=== PATIENT | male | born 1980 | race Caucasian/White ===

== ENCOUNTER 2023-08-08 08:27 | Outpatient (OUT) | payer OTHER, SELFPAY ==
[2023-08-08 08:54] LABS: Basophils Absolute Auto 0.1 10^3/uL (0.0-0.1); Basophils Percent Auto 0.5 % (0.2-2.0); Eosinophils Absolute Auto 0.2 10^3/uL (0.0-0.7); Eosinophils Percent Auto 1.9 % (0.9-7.0); Hematocrit 44.2 % (42.0-54.0); Hemoglobin 15.1 g/dL (14.0-18.0); Immature Granulocytes Abs Auto 0.03 10^3/uL (0.00-0.03); Immature Granulocytes Pct Auto 0.3 % (0.0-0.5); Lymphocytes Absolute Auto 1.8 10^3/uL (1.2-3.8); Lymphocytes Percent Auto 18.5 % (20.5-60.0); Mean Corpuscular HGB Conc 34.2 g/dL (29.9-35.2); Mean Corpuscular Hemoglobin 27.6 pg (25.9-34.0); Mean Corpuscular Volume 80.8 fL (80.0-94.0); Mean Platelet Volume 9.3 fL (9.5-13.5); Monocytes Absolute Auto 0.9 10^3/uL (0.3-0.8); Monocytes Percent Auto 8.6 % (1.7-12.0); Neutrophils Percent Auto 70.2 % (43.0-75.0); Platelet Count 408 10^3/uL (150-450); Red Blood Count 5.47 10^6/uL (4.70-6.10); Red Cell Distribution Width 12.3 % (11.0-15.0)
[2023-08-08 09:42] LABS: Estimated Average Glucose 263 mg/dL; Glycohemoglobin A1C 10.8 % (4.5-6.2)
[2023-08-08 10:31] LABS: Alanine Aminotransferase 23 U/L (16-63); Albumin Globulin Ratio 0.7; Albumin Level 3.2 g/dL (3.4-5.0); Alkaline Phosphatase 113 U/L (46-116); Aspartate Amino Transferase 11 U/L (15-37); BUN Creatinine Ratio 4.9; Bilirubin Total 0.6 mg/dL (0.2-1.0); Carbon Dioxide 29.8 mmol/L (21.0-32.0); Chloride 98 mmol/L (98-107); Chol HDL Ratio 4.8; Cholesterol 178 mg/dL (<=200); Estimated GFR (African America >60 (>=60); Estimated GFR (Non-African Ame >60 (>=60); Free T3 2.43 pg/mL (2.18-3.98); Globulin 4.5 g/dL; Glucose 309 mg/dL (74-106); HDL Cholesterol 37 mg/dL (40-60); Potassium 3.8 mmol/L (3.5-5.1); Sodium 136 mmol/L (136-145); Total Protein 7.7 g/dL (6.4-8.2); Triglycerides 205 mg/dL (<=150)
[2023-08-08 10:44] LABS: Prostate Specific Antigen Scrn 3.86 ng/mL (<=4.00)
[2023-08-09 04:07] LABS: Testosterone 351 ng/dL (264-916)
[2023-08-09 10:09] LABS: Insulin 6.5 uIU/mL (2.6-24.9)
== END 2023-08-08 08:28 | disposition home or self-care (01) ==
PROVIDERS: PCP Family Medicine; Visit Provider Family Medicine
DX: Z00.00 Encounter for general adult medical examination without abnormal findings (principal); E78.5 Hyperlipidemia, unspecified; Z12.5 Encounter for screening for malignant neoplasm of prostate; R73.9 Hyperglycemia, unspecified
CPT/HCPCS: 36415; 80053; 80061; 83036; 83525; 84403; 84436; 84443; 84481; 85025; G0103

== ENCOUNTER 2023-11-13 07:35 | Emergency (ER) | payer OTHER, SELFPAY ==
[2023-11-13 07:39] VITALS: BP 118/92; PULSE 71; TEMP 36.6; O2SAT 99; BMI 25.1
--- NOTE | 2023-11-13 07:55 | CT_ITS ---
The [address] [address] Patient Name: RODRIGO FAGAN MRN: [id number] date: 1980 Sex: M Assigned Patient Location: ED.MAIN Current Patient Location: Accession/Order Number: [id number] Exam Date: 11/13/2023 08:20 Report Date: 11/13/2023 08:58 At the request of: MARCUS ROBERT Procedure: CT lumbar spine wo con PROCEDURE: CT lumbar spine wo con COMPARISON: None. HISTORY: back pain with bilateral leg weakness TECHNIQUE: Axial, Coronal, and Sagittal CT images obtained without IV contrast. Dose reduction techniques were achieved by using automated exposure control and/or adjustment of mA and/or kV according to patient size and/or use of iterative reconstruction technique. FINDINGS: PARASPINAL AREA: Normal with no visible mass. DISCS: No significant disc/facet abnormality, spinal stenosis, or foraminal stenosis. BONES: Normal alignment with no acute fracture or spondylolisthesis. No significant degenerative changes OTHER: Minimal atherosclerosis CT/CT lumbar spine wo con IMPRESSION: No acute abnormality Electronically authenticated by: PEYMAN GRANADO Date: 11/13/2023 08:58
--- NOTE | 2023-11-13 08:05 | ED.GENADUL1 ---
HPI HPI - General Adult General Chief complaint: Neuro Symptoms/Deficit Stated complaint: LOWER EXTREMITY PAIN AND WEAKNESS Time Seen by Provider: 11/13/23 07:43 Source: patient Mode of arrival: Wheelchair Limitations: no limitations History of Present Illness HPI narrative: The patient is coming to the ER with 1 day history of weakness and feeling unsteady on his feet with numbness and tingling in his feet that is more than his baseline, the patient mentioned that he already had a some tingling in his feet but it does not seem that he follow-up with his primary care regularly, and according to his he was may be diagnosed with diabetes and he is not taking any medic patient, she mentioned that he have elevated blood sugar history The patient denies any fall although he did mention that when he stood up and his feet from the bed when he woke up today he found that he had his bilateral leg gave up, the patient does have a history of chronic back pain There was no head injury at any time no loss of consciousness there was no headache The patient had no change in bowel movement or any change in appetite there was no fever , chills cough or any abdominal pain or any chest pain record, Related Data Previous Rx's ?Medication ?Instructions ?Recorded metformin 500 mg tablet 500 mg PO DAILY #30 tabs 11/13/23 Allergies Allergy/AdvReac Type Severity Reaction Status Date / Time No Known Drug Allergies Allergy Verified 11/13/23 07:39 Opioid HPI Opioid Management Most Recent Opioid Data: No Data to Display Review of Systems ROS Status of ROS 10 or more systems reviewed and unremarkable except as noted in history and below Exam Narrative Exam Narrative: Nurses notes and vital signs reviewed and patient is not hypoxic. General: Well-appearing and in no apparent distress. Skin: Warm, dry, no pallor noted. No rash. Head: Normocephalic, atraumatic. Neck: Supple, non-tender. Eye: Pupils are equal, round and EOMI. No scleral icterus. Ears, Nose, Mouth, and Throat: TM are clear, no nasal mucosal hypertrophy. Oral mucosa is moist, no posterior oropharynx erythema, uvula is mid-line Cardiovascular: Regular Rate and Rhythm without murmur, gallop or rub. Respiratory: No accessory muscle use or respiratory distress. Lungs are clear to auscultation, no wheezing, rales or rhonchi Chest Wall: no tenderness Back: No midline thoracic or lumbar vertebral tenderness. No CVA tenderness Musculoskeletal: normal ROM, no calf or popliteal tenderness, no lower extremity edema/swelling GI: Abdomen is soft, non-distended. Normal bowel sounds. No masses appreciated. No tenderness to palpation. No rebound, guarding, or rigidity noted. Neurological: A&O x4. No cranial nerve dysfunction observed. No truncal ataxia. Moves all extremities. The patient have a stocking like sensation that stops at the mid tibia bilaterally with decreased sensation to pain, he did had the dizziness when standing up and unsteadiness, Psychiatric: Cooperative and interactive. Normal mood and affect. Constitutional Vital Signs, click to edit/add: Last Vital Signs Temp 97.9 F 11/13/23 07:39 Pulse 71 11/13/23 07:39 Resp 18 11/13/23 07:39 BP 118/92 H 11/13/23 07:39 Pulse Ox 99 11/13/23 07:39 O2 Del Method Room Air 11/13/23 07:39 Course Vital Signs Vital signs: Vital Signs Temperature 97.9 F 11/13/23 07:39 Pulse Rate 71 11/13/23 07:39 Respiratory Rate 18 11/13/23 07:39 Blood Pressure 118/92 H 11/13/23 07:39 Pulse Oximetry 99 11/13/23 07:39 Oxygen Delivery Method Room Air 11/13/23 07:39 Temperature 97.9 F 11/13/23 07:39 Pulse Rate 71 11/13/23 07:39 Respiratory Rate 18 11/13/23 07:39 Blood Pressure 118/92 H 11/13/23 07:39 Pulse Oximetry 99 11/13/23 07:39 Oxygen Delivery Method Room Air 11/13/23 07:39 Medical Decision Making MDM Narrative Medical decision making narrative: The patient presented to us mostly with the peripheral neuropathy Reviewing the patient workup from July he is definitely diabetic with A1c above 10 but he is not taking any medication for it his blood sugar around 300 right now He does not have any signs of DKA there was no polyuria or polydipsia and his blood workup shows no acidosis Patient was started on IV fluids after which she was feeling much better The plan was to discharge home with metformin 500 mg daily to be started but he will was instructed about the importance of follow-up with his primary care within a week that he need to further discuss further options to treat his diabetes Patient multiple times have been advised about diabetes management The patient is to follow up with primary care physician in next 2-3 days or to return to the emergency department should any of the signs or symptoms worsen or new symptoms develop. The patient agrees with the following Diagnosis and Treatment plan and the patient will be discharged home. Lab Data Labs: Lab Results 11/13/23 11/13/23 Range/Units 08:03 08:08 WBC 5.3 (4.0-11.0) 10^3/uL RBC 5.53 (4.70-6.10) 10^6/uL Hgb 15.4 (14.0-18.0) g/dL Hct 44.3 (42.0-54.0) % MCV 80.1 (80.0-94.0) fL MCH 27.8 (25.9-34.0) pg MCHC 34.8 (29.9-35.2) g/dL RDW 12.6 (11.0-15.0) % Plt Count 266 (150-450) 10^3/uL MPV 9.4 L (9.5-13.5) fL Neut % (Auto) 55.5 (43.0-75.0) % Lymph % (Auto) 28.7 (20.5-60.0) % [place] % (Auto) 11.3 (1.7-12.0) % Eos % (Auto) 3.4 (0.9-7.0) % Baso % (Auto) 0.9 (0.2-2.0) % Neut # (Auto) 2.9 (1.4-6.5) 10^3/uL Lymph # (Auto) 1.5 (1.2-3.8) 10^3/uL [place] # (Auto) 0.6 (0.3-0.8) 10^3/uL Eos # (Auto) 0.2 (0.0-0.7) 10^3/uL Baso # (Auto) 0.1 (0.0-0.1) 10^3/uL Abs Immat Gran (auto) 0.01 (0.00-0.03) 10^3/uL Imm/Tot Granulo (auto) 0.2 (0.0-0.5) % Sodium 137 (136-145) mmol/L Potassium 4.0 (3.5-5.1) mmol/L Chloride 102 (98-107) mmol/L Carbon Dioxide 30.1 (21.0-32.0) mmol/L Anion Gap 8.9 BUN 6.0 L (7.0-18.0) mg/dL Creatinine 0.75 (0.70-1.30) mg/dL Est GFR ( Amer) >60 (>=60) Est GFR (Non-Af Amer) >60 (>=60) BUN/Creatinine Ratio 8.0 Glucose 283 H (74-106) mg/dL Calcium 8.3 L (8.5-10.1) mg/dL Magnesium 1.9 (1.8-2.4) mg/dL Total Bilirubin 0.6 (0.2-1.0) mg/dL AST 16 (15-37) U/L ALT 25 (16-63) U/L Alkaline Phosphatase 80 (46-116) U/L Total Protein 6.9 (6.4-8.2) g/dL Albumin 3.4 (3.4-5.0) g/dL Globulin 3.5 g/dL Albumin/Globulin Ratio 1.0 Urine Color Yellow (YELLOW) Urine Clarity Clear (CLEAR) Urine pH 6.0 (5.0-9.0) Ur Specific [place] 1.020 (1.005-1.025) Urine Protein Negative (NEG/TRACE) mg/dL Urine Glucose (UA) >=1000 A (NEGATIVE) mg/dL Urine Ketones Trace A (NEGATIVE) mg/dL Urine Occult Blood Negative (NEGATIVE) Urine Nitrite Negative (NEGATIVE) Urine Bilirubin Negative (NEGATIVE) Urine Urobilinogen 1.0 (0.2-1.0) EU/dL Ur Leukocyte Esterase Negative (NEGATIVE) Discharge Plan Discharge Stand Alone Forms: Portal Instructions Chief Complaint: Neuro Symptoms/Deficit Clinical Impression: Peripheral neuropathy Qualifiers: Peripheral neuropathy type: polyneuropathy, unspecified Qualified Code(s): G62.9 - Polyneuropathy, unspecified Patient Disposition: Home, Self-Care Time of Disposition Decision: 09:37 Condition: Good Prescriptions / Home Meds: New metformin 500 mg tablet 500 mg PO DAILY Qty: 30 0RF Print Language: [place] Instructions: Peripheral Neuropathy (ED), Diabetic Hyperglycemia (ED), Diabetes and Nutrition (ED) Referrals: Aurelio Babb MD [Primary Care Provider] - 1 week
[2023-11-13] MEDS: 0.9 % SODIUM CHLORIDE 1,000 ML 1000 ML IV (08:10)
[2023-11-13 08:14] LABS: Basophils Absolute Auto 0.1 10^3/uL (0.0-0.1); Basophils Percent Auto 0.9 % (0.2-2.0); Eosinophils Absolute Auto 0.2 10^3/uL (0.0-0.7); Eosinophils Percent Auto 3.4 % (0.9-7.0); Hematocrit 44.3 % (42.0-54.0); Hemoglobin 15.4 g/dL (14.0-18.0); Immature Granulocytes Abs Auto 0.01 10^3/uL (0.00-0.03); Immature Granulocytes Pct Auto 0.2 % (0.0-0.5); Lymphocytes Absolute Auto 1.5 10^3/uL (1.2-3.8); Lymphocytes Percent Auto 28.7 % (20.5-60.0); Mean Corpuscular HGB Conc 34.8 g/dL (29.9-35.2); Mean Corpuscular Hemoglobin 27.8 pg (25.9-34.0); Mean Corpuscular Volume 80.1 fL (80.0-94.0); Mean Platelet Volume 9.4 fL (9.5-13.5); Monocytes Absolute Auto 0.6 10^3/uL (0.3-0.8); Monocytes Percent Auto 11.3 % (1.7-12.0); Neutrophils Absolute Auto 2.9 10^3/uL (1.4-6.5); Neutrophils Percent Auto 55.5 % (43.0-75.0); Platelet Count 266 10^3/uL (150-450); Red Blood Count 5.53 10^6/uL (4.70-6.10); Red Cell Distribution Width 12.6 % (11.0-15.0); White Blood Count 5.3 10^3/uL (4.0-11.0)
[2023-11-13 08:26] LABS: Bilirubin Urine NEGATIVE (NEGATIVE); Blood Urine NEGATIVE (NEGATIVE); Clarity Urine CLEAR (CLEAR); Color Urine YELLOW (YELLOW); Glucose Urine UA >=1000 mg/dL (NEGATIVE); Ketones Urine TRACE mg/dL (NEGATIVE); Leukocyte Esterase Urine NEGATIVE (NEGATIVE); Nitrite Urine NEGATIVE (NEGATIVE); Protein Urine NEGATIVE (NEG/TRACE)
[2023-11-13 08:27] LABS: Urine Microscopic Indicated NO
[2023-11-13 08:31] LABS: Alanine Aminotransferase 25 U/L (16-63); Albumin Level 3.4 g/dL (3.4-5.0); Alkaline Phosphatase 80 U/L (46-116); Anion Gap 8.9; Aspartate Amino Transferase 16 U/L (15-37); Bilirubin Total 0.6 mg/dL (0.2-1.0); Calcium 8.3 mg/dL (8.5-10.1); Carbon Dioxide 30.1 mmol/L (21.0-32.0); Chloride 102 mmol/L (98-107); Estimated GFR (African America >60 (>=60); Estimated GFR (Non-African Ame >60 (>=60); Globulin 3.5 g/dL; Glucose 283 mg/dL (74-106); Sodium 137 mmol/L (136-145); Total Protein 6.9 g/dL (6.4-8.2)
[2023-11-13 08:35] LABS: Magnesium 1.9 mg/dL (1.8-2.4)
[2023-11-13 09:52] VITALS: BP 125/75; PULSE 76; O2SAT 98
[2023-11-13 09:53] VITALS: O2SAT 97
[2023-11-13 10:09] VITALS: BP 118/88; PULSE 85; O2SAT 99
== END 2023-11-13 10:10 | disposition home or self-care (01) ==
PROVIDERS: Emergency Provider Emergency Medicine; PCP Family Medicine
DX: E11.42 Type 2 diabetes mellitus with diabetic polyneuropathy (principal); Z79.84 Long term (current) use of oral hypoglycemic drugs
CPT/HCPCS: 36415; 72131; 80053; 81003; 83735; 85025; 99284

== ENCOUNTER 2024-03-11 04:15 | Emergency (ER) | payer OTHER, SELFPAY ==
[2024-03-11 04:18] VITALS: BP 143/108; PULSE 86; TEMP 36.6; O2SAT 99; BMI 28.1
--- OUTSIDE RECORDS SUMMARY | 2024-03-11 04:32 | XMS_ITS | CCD ---
Author Organization [facility] Care Team Providers Care Landscape Gardener Name Role Phone HOY, EMMANUELLE Consulting Unavailable HOY, EMMANUELLE Attending Unavailable HOY, EMMANUELLE Admitting Unavailable HOY, EMMANUELLE Primary Care Unavailable HOY, EMMANUELLE Attending Unavailable HOY, EMMANUELLE Admitting Unavailable HOY, EMMANUELLE Consulting Unavailable Problems Active Problems Problem Classification Problem Date Documented Da te Episodic/Chronic Unclassified (4 sources) COVID-19; Translations: [COVID-19] Onset: 03-28-2020 Past or Other Problems Problem Classification Problem Date Documented Da te Episodic/Chronic Diabetes mellitus without complication (1 source) Other abnormal glucose; Translations: [OTHER ABNORMAL GLUCOSE] Onset: 12-11-2019 Episodic Other nutritional; endocrine; and metabolic disorders (4 sources) Polydipsia; Translations: [POLYDIPSIA] Onset: 12-04-2019 Episodic Other nutritional; endocrine; and metabolic disorders (1 source) Abnormal weight loss; Translations: [ABNORMAL WEIGHT LOSS] Onset: 12-11-2019 Episodic Results Test Name Value Interpretation Reference Range Facil ity Covid-19 PCR (CVDTBH)on Covid-19 DETECTED Abnormal NOT DETECTED [facility] Comment on above: Result Comment: This test is not yet approved or cleared by the [place] FDA. When there are no FDA-approved or cleared tests available, and other criteria are met, FDA can make tests available under an emergency access mechanism called an Emergency Use Authorization (EUA). The EUA for this test is supported by the [place] of Health and Human Service's (HHS's) declaration that circumstances exist to justify the emergency use of in vitro diagnostics for the detection and/or diagnosis of the virus that causes COVID-19. This EUA will remain in effect (meaning this test can be used) for the duration of the COVID-19 declaration justifying emergency of IVDs, unless it is terminated or revoked by FDA (after which the test may no longer be used). Performed By: #### I NSULIN #### [facility] [address] [place] [address] Maria D Hernandez EUA Statement SEE BELOW Normal [facility] Comment on above: Result Comment: This test is not yet approved or cleared by the [place] FDA. When there are no FDA-approved or cleared tests available, and other criteria are met, FDA can make tests available under an emergency access mechanism called an Emergency Use Authorization (EUA). The EUA for this test is supported by the [place] of Health and Human Service?s (HHS?s) declaration that circumstances exist to justify the emergency use of in vitro diagnostics for the detection and/or diagnosis of the virus that causes COVID-19. This EUA will remain in effect (meaning this test can be used) for the duration of the COVID-19 declaration justifying emergency of IVDs, unless it is terminated or revoked by FDA (after which the test may no longer be used). When diagnostic testing is negative, the possibility of a false negative should be considered in the context of a patients recent exposures and the presence of clinical signs and symptoms consistent with SARS-CoV-2. Performed By: #### I NSULIN #### [facility] [address] [place] [address] Maria D Hernandez INSULINon 12-05-2019 Insulin 8.7 uIU/mL Normal 2.6-24.9 [facility] Comment on above: Performed By: #### I NSULIN #### [facility] [address] [place] [address] Maria D Hernandez CBC AUTO DIFFon 12-04-2019 Basophils (Bld) [#/Vol] 0.1 103/ul Normal 0.0-0.1 [facility] Comment on above: Performed By: #### C BC #### [facility] [address] [place] [address] Maria D Hernandez Basophils/100 WBC (Bld) 0.8 % Normal 0.2-2.0 [facility] Comment on above: Performed By: #### C BC #### [facility] [address] [place] [address] Maria D Mary Eosinophils (Bld) [#/Vol] 0.4 103/ul Normal 0.0-0.7 [facility] Comment on above: Performed By: #### C BC #### [facility] [address] [place] [address] Maria D Mary Eosinophils/100 WBC (Bld) 5.6 % Normal 0.9-7.0 [facility] Comment on above: Performed By: #### C BC #### [facility] [address] [place] [address] Maria D Mary Erythrocyte distribution width (RBC) [Ratio] 12.5 % Normal 11.0-15.0 [facility] Comment on above: Performed By: #### C BC #### [facility] [address] [place] [address] Maria D Mary Hematocrit (Bld) [Volume fraction] 44.8 % Normal 42.0-54.0 [facility] Comment on above: Performed By: #### C BC #### [facility] [address] [place] [address] Maria D Mary Hemoglobin (Bld) [Mass/Vol] 15.4 g/dL Normal 14.0-18.0 [facility] Comment on above: Performed By: #### C BC #### [facility] [address] [place] [address] Maria D Mary IG # 0.02 10e3/ul Normal 0.00-0.03 [facility] Comment on above: Performed By: #### C BC #### [facility] [address] [place] [address] Maria D Mary IG % 0.3 % Normal 0.0-0.5 [facility] Comment on above: Performed By: #### C BC #### [facility] [address] [place], [place] [id number] Maria D Mary Lymphocytes (Bld) [#/Vol] 1.0 103/ul Critically low 1.2-3.8 [facility] Comment on above: Performed By: #### C BC #### [facility] [address] [place] [address] Maria Dhillary Hernandez Lymphocytes/100 WBC (Bld) 14.9 % Critically low 20.5-60.0 [facility] Comment on above: Performed By: #### C BC #### [facility] [address] [place] [address] Maria D Hernandez MANUAL DIFF REQ NO Normal [facility] Comment on above: Performed By: #### C BC #### [facility] [address] [place], [place] [id number] Maria Dhillary Hernandez MCH (RBC) [Entitic mass] 27.7 pg Normal 25.9-34.0 [facility] Comment on above: Performed By: #### C BC #### [facility] [address] [place] [address] Maria Dhillary Hernandez MCHC (RBC) [Mass/Vol] 34.4 g/dL Normal 29.9-35.2 [facility] Comment on above: Performed By: #### C BC #### [facility] [address] [place] [address] Maria Dhillary Hernandez MCV (RBC) [Entitic vol] 80.7 fL Normal 80.0-94.0 [facility] Comment on above: Performed By: #### C BC #### [facility] [address] [place] [address] Maria D Mary Monocytes (Bld) [#/Vol] 0.5 103/ul Normal 0.3-0.8 [facility] Comment on above: Performed By: #### C BC #### [facility] [address] [place] [address] Maria Dhillary Kwonen Monocytes/100 WBC (Bld) 7.8 % Normal 1.7-12.0 [facility] Comment on above: Performed By: #### C BC #### [facility] [address] [place], [place] [id number] Maria D Mary Neutrophils (Bld) [#/Vol] 4.5 103/ul Normal 1.4-6.5 [facility] Comment on above: Performed By: #### C BC #### [facility] [address] [place] [address] Maria D Mary Neutrophils/100 WBC (Bld) 70.6 % Normal 43.0-75.0 [facility] Comment on above: Performed By: #### C BC #### [facility] [address] [place], [place] [address] Maria D Mary Platelet mean volume (Bld) [Entitic vol] 10.0 fL Normal 9.5-13.5 [facility] Comment on above: Performed By: #### C BC #### [facility] [address] [place], [place] [address] Maria D Mary Platelets (Bld) [#/Vol] 336 103/ul Normal 150-450 [facility] Comment on above: Performed By: #### C BC #### [facility] [address] [place], [place] [phone] Maria D Mary RBC (Bld) [#/Vol] 5.55 106/ul Normal 4.70-6.10 [facility] Comment on above: Performed By: #### C BC #### [facility] [address] [place], [place] [phone] Maria D Mary WBC (Bld) [#/Vol] 6.4 103/ul Normal 4.0-11.[address] [facility] Comment on above: Performed By: #### C BC #### [facility] [address] [place] [address] Maria D Mary CULTURE URINEon 12-04-2019 CULTURE URINE Culture Observations: No growth. Normal [facility] Comment on above: Performed By: #### U RCX #### [facility] [address] [place] [address] Maria D Mary DIRECT LDLon 12-04-2019 Cholesterol in LDL [Mass/Vol] SEE BELOW Normal [facility] Comment on above: Result Comment: <100 mg/dl OPTIMAL 100 - 129 mg/dl NEAR OR ABOVE OPTIMAL 130 - 159 mg/dl BORDERLINE HIGH 160 - 189 mg/dl HIGH >190 mg/dl VERY HIGH Performed By: #### T 7, TSH, CMP, DLDL, LIPID #### [facility] [address] [place], [place] [phone] Maria D Mary Cholesterol in LDL [Mass/Vol] 116 mg/dL Normal [facility] Comment on above: Performed By: #### T 7, TSH, CMP, DLDL, LIPID #### [facility] [address] [place] [id number] Maria D Hernandez FREE THYROXINE INDEX T7on FTI 3.01 Normal [facility] Comment on above: Performed By: #### T 7, TSH, CMP, DLDL, LIPID #### [facility] [address] [place] [id number] Maria D Hernandez T3U 35.0 % Normal 23.5-40.5 [facility] Comment on above: Performed By: #### T 7, TSH, CMP, DLDL, LIPID #### [facility] [address] [place] [id number] Maria D Hernandez T4 [Mass/Vol] 8.60 ug/dL Normal 5.53-11.00 [facility] Comment on above: Performed By: #### T 7, TSH, CMP, DLDL, LIPID #### [facility] [address] [place], [place] [address] Maria D Hernandez GLYCOHEMOGLOBIN A1Con 2019 Glucose [Mass/Vol] 341 mg/dL Normal The [facility] Comment on above: Performed By: #### A 1C #### [facility] [address] [place], [place] [address] Maria D Hernandez HbA1c (Bld) [Mass fraction] 13.5 % Critically high <=6.0 [facility] Comment on above: Performed By: #### A 1C #### [facility] [address] [place] [id number] Maria D Hernandez LIPID PROFILEon 12-04-2019 CHOL-HDL RATIO NORM SEE BELOW Normal [facility] Comment on above: Result Comment: 3.3 - 4.4 LOW RISK 4.4 - 7.1 AVERAGE RISK 7.1 - 11.0 MODERATE RISK >11.0 HIGH RISK Performed By: #### T 7, TSH, CMP, DLDL, LIPID #### [facility] [address] [id number] Maria D Mary Cholesterol [Mass/Vol] 217 mg/dL Critically high <=200 [facility] Comment on above: Performed By: #### T 7, TSH, CMP, DLDL, LIPID #### [facility] [address] [phone] Maria D Mary Cholesterol in HDL [Mass/Vol] 30 mg/dL Normal [facility] Comment on above: Performed By: #### T 7, TSH, CMP, DLDL, LIPID #### [facility] [address] [phone] Maria D Mary Cholesterol in HDL [Mass/Vol] > or = 60 mg/dl - LOW CARDIOVASCULAR RISK <40 mg/dl - HIGH CARDIOVASCULAR RISK Normal [facility] Comment on above: Performed By: #### T 7, TSH, CMP, DLDL, LIPID #### [facility] [address] [id number] Maria D Mary Cholesterol.total/Cho lesterol in HDL [Mass ratio] 7.2 {ratio} Normal [facility] Comment on above: Performed By: #### T 7, TSH, CMP, DLDL, LIPID #### [facility] [address] [id number] Maria D Mary Triglyceride [Mass/Vol] mg/dL Critically high <=150 [facility] Comment on above: Performed By: #### T 7, TSH, CMP, DLDL, LIPID #### [facility] [address] [place] [phone] Maria Dhillary Hernandez PROF 14(COMP METB)on 020 Albumin [Mass/Vol] 3.8 g/dL Normal 3.5-5.0 [facility] Comment on above: Performed By: #### T 7, TSH, CMP, DLDL, LIPID #### [facility] [address] [id number] Maria D Mary Albumin/Globulin [Mass ratio] 0.9 {ratio} Normal [facility] Comment on above: Performed By: #### T 7, TSH, CMP, DLDL, LIPID #### [facility] [address] [place] [phone] Maria D Mary ALP [Catalytic activity/Vol] 83 U/L Normal 38-126 [facility] Comment on above: Performed By: #### T 7, TSH, CMP, DLDL, LIPID #### [facility] [address] [place] [address] Maria D Mary ALT [Catalytic activity/Vol] 42 U/L Normal 21-72 [facility] Comment on above: Performed By: #### T 7, TSH, CMP, DLDL, LIPID #### [facility] [address] [place] [address] Maria D Mary Anion gap [Moles/Vol] 13.5 mmol/L Normal [facility] [place] [facility] Comment on above: Performed By: #### T 7, TSH, CMP, DLDL, LIPID #### [facility] [address] [place] [address] Maria D Mary AST [Catalytic activity/Vol] 20 U/L Normal 17-59 [facility] Comment on above: Performed By: #### T 7, TSH, CMP, DLDL, LIPID #### [facility] [address] [place] [address] Maria D Mary Bilirubin Ql (U) 0.8 mg/dL Normal 0.2-1.3 The [facility] Comment on above: Performed By: #### T 7, TSH, CMP, DLDL, LIPID #### [facility] [address] [place] [address] Maria D Mary Calcium [Mass/Vol] 8.9 mg/dL Normal 8.4-10.2 The [facility] Comment on above: Performed By: #### T 7, TSH, CMP, DLDL, LIPID #### [facility] [address] [place] [address] Maria D Mary Chloride [Moles/Vol] 97 mmol/L Critically low 98-107 [facility] Comment on above: Performed By: #### T 7, TSH, CMP, DLDL, LIPID #### [facility] [address] [place] [address] Maria D Mary CO2 [Moles/Vol] 28.0 mmol/L Normal 22.0-30.0 [facility] Comment on above: Performed By: #### T 7, TSH, CMP, DLDL, LIPID #### [facility] [address] [place] [address] Maria D Mary Creatinine [Mass/Vol] 0.95 mg/dL Normal 0.66-1.25 [facility] Comment on above: Performed By: #### T 7, TSH, CMP, DLDL, LIPID #### [facility] [address] [place] [address] Maria D Mary EGFR-AF TURKISH >60 Normal >=[address] [facility] Comment on above: Performed By: #### T 7, TSH, CMP, DLDL, LIPID #### [facility] [address] [place] [address] Maria D Mary EGFR-NON AF TURKISH >60 Normal >=60 [facility] Comment on above: Performed By: #### T 7, TSH, CMP, DLDL, LIPID #### [facility] [address] [place] [address] Maria D Mary Globulin (S) [Mass/Vol] 4.1 g/dL Normal [facility] Comment on above: Performed By: #### T 7, TSH, CMP, DLDL, LIPID #### [facility] [address] [place] [address] Maria D Mary Glucose [Mass/Vol] 407 mg/dL Critically high 74-106 [facility] Comment on above: Performed By: #### T 7, TSH, CMP, DLDL, LIPID #### [facility] [address] [place] [address] Maria D Mary Potassium [Moles/Vol] 3.5 mmol/L Normal 3.4-5.0 [facility] Comment on above: Performed By: #### T 7, TSH, CMP, DLDL, LIPID #### [facility] [address] [place] [address] Mariad Mary Protein [Mass/Vol] 7.9 g/dL Normal 6.1-8.2 [facility] Comment on above: Performed By: #### T 7, TSH, CMP, DLDL, LIPID #### [facility] [address] [place] [address] Maria D Mary Sodium [Moles/Vol] 135 mmol/L Critically low 137-145 [facility] [place] [facility] Comment on above: Performed By: #### T 7, TSH, CMP, DLDL, LIPID #### [facility] [address] [place] [address] Maria D Mary Urea nitrogen [Mass/Vol] 4.0 mg/dL Critically low 9.0-20.0 [facility] Comment on above: Performed By: #### T 7, TSH, CMP, DLDL, LIPID #### [facility] [address] [place] [address] Maria D Mary Urea nitrogen/Creatinine [Mass ratio] 4.2 mg/mg Normal [facility] Comment on above: Performed By: #### T 7, TSH, CMP, DLDL, LIPID #### [facility] [address] [place] [address] Maria D Mary TSHon 12-04-2019 TSH Qn SEE BELOW Normal [facility] Comment on above: Result Comment: <0.3 4 UIU/ml HYPERTHYROID 0.34-5.60 UIU/ml EUTHYROID >5.60 UIU/ml HYPOTHYROID Performed By: #### T 7, TSH, CMP, DLDL, LIPID #### [facility] [address] [place] [address] Maria D Mary TSH Qn 2.667 uIU/mL Normal 0.470-4.680 [facility] Comment on above: Performed By: #### T 7, TSH, CMP, DLDL, LIPID #### [facility] [address] [place] [address] Maria D Mary UA RANDOMon 12-04-2019 Bilirubin [Mass/Vol] Negative Normal NEGATIVE [facility] Comment on above: Performed By: #### U A #### [facility] [address] [place] [address] Maria D Mary BLOOD Negative Normal NEGATIVE [facility] Comment on above: Performed By: #### U A #### [facility] [address] [place] [address] Maria D Mary Clarity (U) CLEAR Normal [facility] Comment on above: Performed By: #### U A #### [facility] [address] [place] [address] Maria D Mary Color (U) LT. YELLOW Normal YELLOW [facility] Comment on above: Performed By: #### U A #### [facility] [address] [place] [address] Maria D Mary Glucose [Mass/Vol] >1000 Normal NEGATIVE [facility] Comment on above: Performed By: #### U A #### [facility] [address] [place] [address] Maria D Mary Ketones Ql (U) 40 mg/dl Normal NEGATIVE The [facility] Comment on above: Performed By: #### U A #### [facility] [address] [place] [address] Maria D Mary Nitrite Ql (U) Negative Normal NEGATIVE [facility] Comment on above: Performed By: #### U A #### [facility] [address] [place] [address] Maria D Mary pH (Bld) 6.0 Normal 5-9 [facility] Comment on above: Performed By: #### U A #### [facility] [address] [place] [address] Maria D Mary Protein [Mass/Vol] Negative Normal [facility] Comment on above: Performed By: #### U A #### [facility] [address] [place] [address] Maria D Mary SPEC GRAVITY 1.010 Normal 1.005-<=1.025 [facility] Comment on above: Performed By: #### U A #### [facility] [address] [place] [address] Maria D Mary Urobilinogen Qn (U) 0.2 EU/dl Normal [facility] Comment on above: Performed By: #### U A #### [facility] [address] [place] [address] Maria D Mary WBC (Bld) [#/Vol] Negative Normal NEGATIVE [facility] Comment on above: Performed By: #### U A #### [facility] [address] [place], [place] [address] Maria D Hernandez Encounters Encounter Date Encounter Type Care Provider Facility Start: 03-28-2020 End: 03-29-2020 Patient encounter procedure EMMANUELLE SANDERS Facility:[facility] Start: 12-04-2019 End: 12-05-2019 Patient encounter procedure EMMANUELLE SANDERS Facility:[facility] Payers Date Payer Category Payer Unknown [id number] 1980 Unknown [id number] 1961 Private Health Insurance [id number] Summary Purpose Family History No Family History Records Found Advance Directives No Advanced Directives Records Found Additional Source Comments (unrecognized sect ion and content) No Status Records Found INFORMATION SOURCE (unrecogn ized section and content) DATE CREATED AUTHOR 04/12/2020 [facility] FOR RECORDS PERTAINING TO PATIENTS WHO ARE OR HAVE BEEN ENROLLED IN A CHEMICAL DEPENDENCY/SUBSTANCEABUSE PROGRAM, SOME INFORMATION MAY BE OMITTED. This clinical summary was aggregated from multiple sources. Caution should be exercised in using it in the provision of clinical care. This summary normalizes information from multiple sources, and as a consequence, information in this document may materially change the coding, format and clinical context of patient data. In addition, data may be omitted in some cases. CLINICAL DECISIONS SHOULD BE BASED ON THE PRIMARY CLINICAL RECORDS. [facility] [employer] provides no warranty or guarantee of the accuracy or completeness of information in this document.
--- NOTE | 2024-03-11 04:54 | XR_ITS ---
The [address] [address] Patient Name: RODRIGO FAGAN MRN: [id number] date: 1980 Sex: M Assigned Patient Location: ER Current Patient Location: ER Accession/Order Number: [id number] Exam Date: 03/11/2024 06:10 Report Date: 03/11/2024 06:20 At the request of: TERI LOVE Procedure: XR lumbar spine 2-3V EXAMINATION: XR lumbar spine 2-3V HISTORY: back pain COMPARISON: No relevant comparison available. FINDINGS: BONES: Suspect mild grade 1 retrolisthesis of L5 on S1. Possible mild degenerative facet arthropathy at this level as well. DISC SPACES: Slight narrowing of the posterior aspect of L5-S1 disc space. PARASPINOUS: Negative. No paraspinous abnormality is seen. OTHER: Negative. XR/XR lumbar spine 2-3V IMPRESSION: 1. No appreciable acute abnormality. 2. Suspect mild disc space narrowing, possibly mild facet arthropathy, and slight grade 1 retrolisthesis of L5-S1. Consider follow-up MRI of lumbar spine if symptoms persist. Electronically authenticated by: MELLO ROSS Date: 03/11/2024 06:20
--- NOTE | 2024-03-11 04:55 | ED.BACK1 ---
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 [place] like a tear. Position of comfort at that time was bending forward. Pain was 10/10. Pain now 5-6/10 and he is finally able to sit back. No involvement of his lower extremities. No loss of control of bowel or bladder. He does not want any pain medication at this time Related Data Previous Rx's ?Medication ?Instructions ?Recorded metformin 500 mg tablet 500 mg PO DAILY #30 tabs 11/13/23 Allergies Allergy/AdvReac Type Severity Reaction Status Date / Time No Known Drug Allergies Allergy Verified 03/11/24 04:25 Opioid HPI Opioid Management Most Recent Opioid Data: No Data to Display Review of Systems ROS Status of ROS 10 or more systems reviewed and unremarkable except as noted in history and below Exam Constitutional Vital Signs, click to edit/add: Last Vital Signs Temp 97.9 F 03/11/24 04:18 Pulse 86 03/11/24 04:18 Resp 16 03/11/24 04:18 BP 143/108 H 03/11/24 04:18 Pulse Ox 99 03/11/24 04:18 O2 Del Method Room Air 03/11/24 04:18 Common normals: no apparent distress, average body habitus, oriented x3, no limitations, healthy appearing, alert and well nourished [facility] Common normals: normocephalic and head/scalp atraumatic Respiratory Common normals: normal respiratory effort, no retractions, no use of accessory muscles and clear to auscultation bilaterally Cardio Common normals: regular rate, regular rhythm, S1 normal heart sound and S2 normal heart sound GI Common normals: Normal to inspection, nondistended, normoactive bowel sounds present, soft to palpation and non-tender Back & Pelvis Back image (male):  1. tender-mild Extremity Common normals: normal to inspection and full ROM Neuro Common normals: oriented x3, CN's II-XII intact bilaterally, moves all extremities and no focal motor deficits Psych Appearance: grossly normal Course Vital Signs Vital signs: Vital Signs Temperature 97.9 F 03/11/24 04:18 Pulse Rate 86 03/11/24 04:18 Respiratory Rate 16 03/11/24 04:18 Blood Pressure 143/108 H 03/11/24 04:18 Pulse Oximetry 99 03/11/24 04:18 Oxygen Delivery Method Room Air 03/11/24 04:18 Temperature 97.9 F 03/11/24 04:18 Pulse Rate 86 03/11/24 04:18 Respiratory Rate 16 03/11/24 04:18 Blood Pressure 143/108 H 03/11/24 04:18 Pulse Oximetry 99 03/11/24 04:18 Oxygen Delivery Method Room Air 03/11/24 04:18 MDM - Back Pain/Injury MDM Narrative Medical decision making narrative: injured left lumbar musculature when he was bending over at work. [place] acute pain left back like a tear. the pain has since eased up and he is now able to relax. no radicular symptoms. labs unremarkable except for elevated BS. Patient is known diabetic. xrays lumbar spine neg. patient feels he can return to work tomorrow without restrictions. Did not want any muscle relaxants for his pain Lab Data Labs: Lab Results 03/11/24 Range/Units 05:00 WBC 6.9 (4.0-11.0) 10^3/uL RBC 5.07 (4.70-6.10) 10^6/uL Hgb 14.1 (14.0-18.0) g/dL Hct 41.1 L (42.0-54.0) % MCV 81.1 (80.0-94.0) fL MCH 27.8 (25.9-34.0) pg MCHC 34.3 (29.9-35.2) g/dL RDW 12.8 (11.0-15.0) % Plt Count 299 (150-450) 10^3/uL MPV 9.5 (9.5-13.5) fL Neut % (Auto) 65.8 (43.0-75.0) % Lymph % (Auto) 22.4 (20.5-60.0) % [place] % (Auto) 7.9 (1.7-12.0) % Eos % (Auto) 2.9 (0.9-7.0) % Baso % (Auto) 0.9 (0.2-2.0) % Neut # (Auto) 4.6 (1.4-6.5) 10^3/uL Lymph # (Auto) 1.6 (1.2-3.8) 10^3/uL [place] # (Auto) 0.6 (0.3-0.8) 10^3/uL Eos # (Auto) 0.2 (0.0-0.7) 10^3/uL Baso # (Auto) 0.1 (0.0-0.1) 10^3/uL Abs Immat Gran (auto) 0.01 (0.00-0.03) 10^3/uL Imm/Tot Granulo (auto) 0.1 (0.0-0.5) % ESR 7 (<=15) mm/hr Sodium 142 (136-145) mmol/L Potassium 3.6 (3.5-5.1) mmol/L Chloride 105 (98-107) mmol/L Carbon Dioxide 27.7 (21.0-32.0) mmol/L Anion Gap 12.9 BUN 13.0 (7.0-18.0) mg/dL Creatinine 0.86 (0.70-1.30) mg/dL Est GFR ( Amer) >60 (>=60 mL/min/1.73m^2) Est GFR (Non-Af Amer) >60 (>=60 mL/min/1.73m^2) BUN/Creatinine Ratio 15.1 Glucose 188 H (74-106) mg/dL Calcium 8.7 (8.5-10.1) mg/dL Total Bilirubin 0.5 (0.2-1.0) mg/dL AST 15 (15-37) U/L ALT 25 (16-63) U/L Alkaline Phosphatase 64 (46-116) U/L Myoglobin 81 (16-96) ng/mL C-Reactive Protein <0.50 (<=0.50) mg/dL Total Protein 7.1 (6.4-8.2) g/dL Albumin 3.6 (3.4-5.0) g/dL Globulin 3.5 g/dL Albumin/Globulin Ratio 1.0 Discharge Plan Discharge Chief Complaint: Back Pain/Injury Clinical Impression: Strain of lumbar region Patient Disposition: Home, Self-Care Prescriptions / Home Meds: No Action metformin 500 mg tablet 500 mg PO DAILY Qty: 30 0RF Print Language: Welsh Instructions: Low Back Strain (ED) Referrals: Aurelio Babb MD [Primary Care Provider] - 1 week
[2024-03-11 05:11] LABS: Basophils Absolute Auto 0.1 10^3/uL (0.0-0.1); Basophils Percent Auto 0.9 % (0.2-2.0); Eosinophils Absolute Auto 0.2 10^3/uL (0.0-0.7); Eosinophils Percent Auto 2.9 % (0.9-7.0); Hematocrit 41.1 % (42.0-54.0); Hemoglobin 14.1 g/dL (14.0-18.0); Immature Granulocytes Abs Auto 0.01 10^3/uL (0.00-0.03); Immature Granulocytes Pct Auto 0.1 % (0.0-0.5); Lymphocytes Absolute Auto 1.6 10^3/uL (1.2-3.8); Lymphocytes Percent Auto 22.4 % (20.5-60.0); Mean Corpuscular HGB Conc 34.3 g/dL (29.9-35.2); Mean Corpuscular Hemoglobin 27.8 pg (25.9-34.0); Mean Corpuscular Volume 81.1 fL (80.0-94.0); Mean Platelet Volume 9.5 fL (9.5-13.5); Monocytes Absolute Auto 0.6 10^3/uL (0.3-0.8); Monocytes Percent Auto 7.9 % (1.7-12.0); Neutrophils Absolute Auto 4.6 10^3/uL (1.4-6.5); Neutrophils Percent Auto 65.8 % (43.0-75.0); Platelet Count 299 10^3/uL (150-450); Red Blood Count 5.07 10^6/uL (4.70-6.10); Red Cell Distribution Width 12.8 % (11.0-15.0); White Blood Count 6.9 10^3/uL (4.0-11.0)
[2024-03-11 05:20] LABS: Erythrocyte Sedimentation Rate 7 mm/hr (<=15)
[2024-03-11 05:37] LABS: Alanine Aminotransferase 25 U/L (16-63); Albumin Level 3.6 g/dL (3.4-5.0); Alkaline Phosphatase 64 U/L (46-116); Anion Gap 12.9; Aspartate Amino Transferase 15 U/L (15-37); BUN Creatinine Ratio 15.1; Bilirubin Total 0.5 mg/dL (0.2-1.0); Calcium 8.7 mg/dL (8.5-10.1); Carbon Dioxide 27.7 mmol/L (21.0-32.0); Chloride 105 mmol/L (98-107); Estimated GFR (African America >60 (>=60 mL/min/1.73m^2); Estimated GFR (Non-African Ame >60 (>=60 mL/min/1.73m^2); Globulin 3.5 g/dL; Glucose 188 mg/dL (74-106); Myoglobin 81 ng/mL (16-96); Potassium 3.6 mmol/L (3.5-5.1); Sodium 142 mmol/L (136-145); Total Protein 7.1 g/dL (6.4-8.2)
[2024-03-11 05:46] LABS: C Reactive Protein <0.50 mg/dL (<=0.50)
[2024-03-11 06:44] VITALS: BP 113/85; PULSE 72; O2SAT 99
--- NOTE | 2024-03-11 06:46 | PC.NURSE ---
i gave verbal and paper discharge orders to this patient and he voices understanding these. at time of discharge this patient voices no concerns and shows no signs distress
== END 2024-03-11 06:47 | disposition home or self-care (01) ==
PROVIDERS: Emergency Provider Internal Medicine; PCP Family Medicine
DX: S39.012A Strain of muscle, fascia and tendon of lower back, initial encounter (principal); X50.1XXA Overexertion from prolonged static or awkward postures, initial encounter
CPT/HCPCS: 36415; 72100; 80053; 83874; 85025; 85652; 86140; 99284

== ENCOUNTER 2024-07-16 14:16 | Emergency (ER) | payer OTHER, SELFPAY ==
[2024-07-16 14:23] VITALS: BP 112/88; PULSE 89; TEMP 36.6; O2SAT 98; BMI 24.4
[2024-07-16 14:24] LABS: Glucometer 131 mg/dL (74-106)
--- NOTE | 2024-07-16 14:30 | ED_ITS ---
HPI HPI - General Adult General Chief complaint: Recheck/Abnormal Lab/Rx Stated complaint: LEFT SIDE FACE DROOPY SLURRED SPEECH Time Seen by Provider: 07/16/24 14:24 Source: patient Mode of arrival: walk-in Limitations: no limitations History of Present Illness HPI narrative: 44-year-old male presents for left-sided facial weakness. It started yesterday or perhaps the day before. He saw his doctor 2 days ago for some left eye irritation and was put on some antibiotic drops. The left side of his face has been weak since yesterday. He does not complain of a headache and there is been no trauma. He has no weakness or numbness elsewhere on his body. He does not complain of numbness on his face. Related Data Home Medications ?Medication ?Instructions ?Recorded ?Confirmed diclofenac sodium 75 mg 75 mg PO Q12H 07/16/24 07/16/24 tablet,delayed release glimepiride 2 mg tablet 2 mg PO DAILY 07/16/24 07/16/24 [id number] 3.5 1 drp ophthalmic (eye) Q6H 07/16/24 07/16/24 mg/mL-10,000 unit/mL-0.1% eye drops Previous Rx's ?Medication ?Instructions ?Recorded metformin 500 mg tablet 500 mg PO DAILY #30 tabs 11/13/23 prednisone 10 mg tablet See Rx Instructions .Route 07/16/24 .COMPLEX #30 tabs Allergies Allergy/AdvReac Type Severity Reaction Status Date / Time No Known Drug Allergies Allergy Verified 03/11/24 04:25 Opioid HPI Opioid Management Most Recent Opioid Data: No Data to Display Review of Systems ROS Narrative A ten point review of systems is negative except as noted above. PFSH PFSH Social History Little interest or pleasure in doing things: not at all Feeling down, depressed, or hopeless: not at all Exam Narrative Exam Narrative: Nurses note and vital signs reviewed and patient is not hypoxic. General: The patient appears well and in no apparent distress. Patient is resting comfortably on cart. Skin: Warm, dry, no pallor noted. There is no rash noted. Head: Normocephalic, atraumatic Eye: Normal conjunctiva, no drainage, EOMI. PERRL Ears, Nose, Mouth, and Throat: oral mucosa is moist. Nares patent. Cardiovascular: Regular Rate and Rhythm Respiratory: Patient is in no distress, no accessory muscle use, lungs are clear to auscultation, no wheezing, rales or rhonchi Back: non-tender GI: Soft and nontender Musculoskeletal: The patient has no evidence of calf tenderness, no pitting edema, symmetrical pulses noted bilaterally Neurological: A&O x4; upper and lower extremity strength intact and symmetric. He has left-sided facial droop including his forehead. All other cranial nerves are intact Psychiatric: Cooperative Constitutional Vital Signs, click to edit/add: Last Vital Signs Temp 97.8 F 07/16/24 14:23 Pulse 78 07/16/24 15:00 Resp 16 07/16/24 15:00 BP 122/93 H 07/16/24 15:00 Pulse Ox 98 07/16/24 14:23 Course Vital Signs Vital signs: Vital Signs Temperature 97.8 F 07/16/24 14:23 Pulse Rate 89 07/16/24 14:23 Respiratory Rate 18 07/16/24 14:23 Blood Pressure 112/88 07/16/24 14:23 Pulse Oximetry 98 07/16/24 14:23 Temperature 97.8 F 07/16/24 14:23 Pulse Rate 78 07/16/24 15:00 Respiratory Rate 16 07/16/24 15:00 Blood Pressure 122/93 H 07/16/24 15:00 Pulse Oximetry 98 07/16/24 14:23 Medical Decision Making MDM Narrative Medical decision making narrative: CT scan is negative. 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 He is not on any medications for his blood sugar right now and he is going to keep a close eye on his blood sugar at home. He has the ability to do that with a glucometer. He will follow-up with his physician. At this point I do not suspect a stroke. Treatment diagnosis and follow-up were discussed with the patient. Differential Diagnosis Differential Diagnosis: Palacios's palsy, stroke Lab Data Lab results reviewed: Yes I reviewed the patient's lab results Labs: Lab Results 07/16/24 07/16/24 Range/Units 14:23 14:42 WBC 5.4 (4.0-11.0) 10^3/uL RBC 5.05 (4.70-6.10) 10^6/uL Hgb 14.1 (14.0-18.0) g/dL Hct 41.0 L (42.0-54.0) % MCV 81.2 (80.0-94.0) fL MCH 27.9 (25.9-34.0) pg MCHC 34.4 (29.9-35.2) g/dL RDW 13.0 (11.0-15.0) % Plt Count 295 (150-450) 10^3/uL MPV 9.0 L (9.5-13.5) fL Neut % (Auto) 50.7 (43.0-75.0) % Lymph % (Auto) 32.4 (20.5-60.0) % [place] % (Auto) 10.4 (1.7-12.0) % Eos % (Auto) 5.4 (0.9-7.0) % Baso % (Auto) 0.9 (0.2-2.0) % Neut # (Auto) 2.7 (1.4-6.5) 10^3/uL Lymph # (Auto) 1.7 (1.2-3.8) 10^3/uL [place] # (Auto) 0.6 (0.3-0.8) 10^3/uL Eos # (Auto) 0.3 (0.0-0.7) 10^3/uL Baso # (Auto) 0.1 (0.0-0.1) 10^3/uL Abs Immat Gran (auto) 0.01 (0.00-0.03) 10^3/uL Imm/Tot Granulo (auto) 0.2 (0.0-0.5) % Sodium 143 (136-145) mmol/L Potassium 3.5 (3.5-5.1) mmol/L Chloride 106 (98-107) mmol/L Carbon Dioxide 30.9 (21.0-32.0) mmol/L Anion Gap 9.6 BUN 9.0 (7.0-18.0) mg/dL Creatinine 0.82 (0.70-1.30) mg/dL Est GFR ( Amer) >60 (>=60 mL/min/1.73m^2) Est GFR (Non-Af Amer) >60 (>=60 mL/min/1.73m^2) BUN/Creatinine Ratio 11.0 Glucose 141 H (74-106) mg/dL Calcium 8.5 (8.5-10.1) mg/dL POC Glucose 131 H (74-106) mg/dL Imaging Data CT scan - head: Radiologist's impression: No acute intracranial process ECG Data Attestation: I personally reviewed and interpreted this ECG as follows: (EKG on my interpretation shows normal sinus rhythm with rate of 80 and no acute change) Discharge Plan Discharge Chief Complaint: Recheck/Abnormal Lab/Rx Clinical Impression: Palacios's palsy Patient Disposition: Home, Self-Care Time of Disposition Decision: 15:32 Condition: Good Mode of Transportation: Private Vehicle Prescriptions / Home Meds: New prednisone 10 mg tablet See Rx Instructions .ROUTE .COMPLEX Qty: 30 0RF Rx Instructions: 4 by mouth daily for three days then 3 by mouth daily for three days then 2 by mouth daily for three days then 1 by mouth daily for three days No Action diclofenac sodium 75 mg tablet,delayed release (DR/EC) 75 mg PO Q12H glimepiride 2 mg tablet 2 mg PO DAILY neomycin-polymyxin B-dexameth 3.5mg/mL-10,000 unit/mL-0.1 % drops,suspension 1 drp OPHTHALMIC (EYE) Q6H metformin 500 mg tablet 500 mg PO DAILY Qty: 30 0RF Print Language: [place] Instructions: Palacios Palsy (ED) Referrals: Aurelio Babb MD [Primary Care Provider] - 1 week
--- NOTE | 2024-07-16 14:30 | ECG_ITS ---
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 Measurements Intervals [place] Rate: 80 P: 30 CA: 156 QRS: 15 QRSD: 78 T: 18 QT: 352 QTc: 387 Interpretive Statements 1100 Sinus rhythm 9110 normal ECG No previous ECG available for comparison Electronically Signed On 07-17-2024 19:18:37 EDT by DARINEL BAEZA M.D.
[2024-07-16 14:39] VITALS: PULSE 84
[2024-07-16 14:44] VITALS: BP 130/96; PULSE 83
[2024-07-16 14:50] VITALS: BMI 24.4
[2024-07-16 14:51] LABS: Basophils Absolute Auto 0.1 10^3/uL (0.0-0.1); Basophils Percent Auto 0.9 % (0.2-2.0); Eosinophils Absolute Auto 0.3 10^3/uL (0.0-0.7); Eosinophils Percent Auto 5.4 % (0.9-7.0); Hemoglobin 14.1 g/dL (14.0-18.0); Immature Granulocytes Abs Auto 0.01 10^3/uL (0.00-0.03); Immature Granulocytes Pct Auto 0.2 % (0.0-0.5); Lymphocytes Absolute Auto 1.7 10^3/uL (1.2-3.8); Lymphocytes Percent Auto 32.4 % (20.5-60.0); Mean Corpuscular HGB Conc 34.4 g/dL (29.9-35.2); Mean Corpuscular Hemoglobin 27.9 pg (25.9-34.0); Mean Corpuscular Volume 81.2 fL (80.0-94.0); Monocytes Absolute Auto 0.6 10^3/uL (0.3-0.8); Monocytes Percent Auto 10.4 % (1.7-12.0); Neutrophils Absolute Auto 2.7 10^3/uL (1.4-6.5); Neutrophils Percent Auto 50.7 % (43.0-75.0); Platelet Count 295 10^3/uL (150-450); Red Blood Count 5.05 10^6/uL (4.70-6.10); White Blood Count 5.4 10^3/uL (4.0-11.0)
--- NOTE | 2024-07-16 14:52 | PC.NURSE ---
Patient reports difficulty with vision and left side facial drooping since last night.
[2024-07-16 15:00] VITALS: BP 122/93; PULSE 78
[2024-07-16 15:13] LABS: Anion Gap 9.6; Calcium 8.5 mg/dL (8.5-10.1); Carbon Dioxide 30.9 mmol/L (21.0-32.0); Chloride 106 mmol/L (98-107); Estimated GFR (African America >60 (>=60 mL/min/1.73m^2); Estimated GFR (Non-African Ame >60 (>=60 mL/min/1.73m^2); Glucose 141 mg/dL (74-106); Potassium 3.5 mmol/L (3.5-5.1); Sodium 143 mmol/L (136-145)
[2024-07-16 15:30] VITALS: PULSE 78
== END 2024-07-16 15:48 | disposition home or self-care (01) ==
PROVIDERS: Emergency Provider Emergency Medicine; PCP Family Medicine
DX: G51.0 Bell's palsy (principal)
CPT/HCPCS: 36415; 70450; 80048; 85025; 93005; 99285

== ENCOUNTER 2024-07-30 09:57 | Outpatient (RCR) | payer OTHER, SELFPAY | END 2024-07-31 09:36 | disposition home or self-care (01) | LOC: OT 09:57 | PROVIDERS: PCP Family Medicine | DX: S22.089D Unspecified fracture of T11-T12 vertebra, subsequent encounter for fracture with routine healing (principal) | CPT/HCPCS: 97165; 97535 ==

== ENCOUNTER 2024-08-03 10:49 | Outpatient (RCR) | payer OTHER, SELFPAY | END 2024-09-23 09:35 | disposition home or self-care (01) | LOC: PT 10:49 | PROVIDERS: PCP Family Medicine | DX: S22.089D Unspecified fracture of T11-T12 vertebra, subsequent encounter for fracture with routine healing (principal) | CPT/HCPCS: 97110; 97161 ==